=== PATIENT | male | born 1965 | race Caucasian/White ===

== ENCOUNTER 2019-10-08 09:14 | Inpatient (IN) ==
[2019-10-08] MEDS ORDERED: VERAPAMIL 2.5 MG/ML 2 ML VIAL ** 5 mg/2 ml ONE (09:18)
[2019-10-08] MEDS ORDERED: nitroGLYCERIN DRIP 100 MCG/ML 250 ML BTL ONE (09:18)
[2019-10-08] MEDS ORDERED: fentaNYL 100 mcg/2 ml 50 MCG/ML VIAL ONE ×3 (09:18→13:01)
[2019-10-08] MEDS ORDERED: Midazolam 5 mg/5 ml VIAL 1 mg/ml 5 ml VIAL (5 mg) ONE ×2 (09:18→09:19)
[2019-10-08] MEDS ORDERED: Heparin 1,000 UNIT/ML 10 ml (10,000 UNITS) CATHLAB/DIALYSIS ONE ×3 (09:18→10:18)
[2019-10-08] MEDS ORDERED: Heparin 2 UNITS/ML 1000 mls IV ONE (09:18)
[2019-10-08] MEDS ORDERED: Lidocaine 1% VIAL 10 MG/ML VIAL ONE (09:18)
[2019-10-08] MEDS ORDERED: Iohexol 350 (CONTRAST) 100 ML PAK IV ONE (09:18)
[2019-10-08] MEDS ORDERED: KCL 10 MEQ/50 ML ONE (09:18)
[2019-10-08] MEDS ORDERED: Iohexol 350 (CONTRAST) 200 ML MDV IV ONE ×2 (09:19→11:16)
[2019-10-08] MEDS ORDERED: NS 0.9% 1000 ml BAG 1,000 ML IV ONE (09:21)
[2019-10-08 09:27] LABS: ABS Basophils 0.1 10^3/ul (0-0.2); ABS Eosinophils 0.1 10^3/ul (0-0.6); ABS Lymphocytes 2.7 10^3/ul (1.0-4.8); ABS Monocytes 0.4 10^3/ul (0-0.8); Eosinophil % 0.8 %; Hematocrit 41 % (42-52); Hemoglobin 14.1 g/dL (14.0-18.0); Lymphocyte % 23.9 %; Mean Corpuscular HGB Conc 34 g/dL (31-36); Mean Corpuscular Hemoglobin 34 pg (27-31); Mean Corpuscular Volume 100 fL (80-94); Mean Platelet Volume 7.4 fL (7.4-10.4); Nucleated Red Blood Cells % 0.1; Platelet Count 277 10^3/uL (150-450); Red Blood Count 4.12 10^6 /uL (4.18-5.48); Red Cell Distribution Width 14 % (10-15); White Blood Count 11.4 10^3/uL (3.5-10.8)
[2019-10-08] MEDS ORDERED: Amiodarone IV 150 mg/3 ml VIAL ONE (09:29)
[2019-10-08 09:45] LABS: ALT 231 U/L (7-52); AST 230 U/L (13-39); Albumin 3.7 g/dL (3.2-5.2); Albumin/Globulin Ratio 1.3 (1-3); Alkaline Phosphatase 97 U/L (34-104); BUN/Creatinine Ratio 9.7 (8-20); Blood Urea Nitrogen 12 mg/dL (6-24); Calcium 8.2 mg/dL (8.6-10.3); Chloride 107 mmol/L (101-111); EGFR African American 73.8 (>60); Globulin 2.9 g/dL (2-4); Glucose 363 mg/dL (70-100); Potassium 3.1 mmol/L (3.5-5.0); Sodium 136 mmol/L (135-145); Total Protein 6.6 g/dL (6.4-8.9)
[2019-10-08] MEDS ORDERED: KCL 10 MEQ/50 ML IVPREMIX 10 MEQ/50 ML BAG ONE ×2 (09:49→10:51)
[2019-10-08 09:51] LABS: Anion Gap 15 mmol/L (2-11); CO2 Carbon Dioxide 14 mmol/L (22-32); Troponin I 0.11 ng/mL (<0.03)
[2019-10-08] MEDS ORDERED: Heparin 2 UNITS/ML 1000 mls 1,000 ML IV ONE (09:54)
[2019-10-08] MEDS ORDERED: Eptifibatide IV (Load dose) 2 MG/ML 10 ml VIAL ONE (10:28)
[2019-10-08] MEDS ORDERED: Sodium Bicarbonate 8.4% SYR 50 ml SYRINGE ONE ×2 (10:47→11:11)
[2019-10-08] MEDS ORDERED: fentaNYL 100 mcg/2 ml 50 MCG/ML VIAL IV SLOW PU PRN ×2 (10:57→13:22)
[2019-10-08] MEDS ORDERED: Propofol 10 mg/ml 100 ML BTL 100 ML ONE (10:58)
[2019-10-08] MEDS ORDERED: Propofol 10 mg/ml 100 ML BTL 100 ML IV SCH (11:00)
[2019-10-08] MEDS ORDERED: KCL 20 MEQ/100 ML IVPREMIX 20 MEQ/100 ML BAG IV SCH ×2 (11:00→13:00)
[2019-10-08] MEDS ORDERED: Norepinephrine IV 1 MG/ML 4 ML VIAL ONE (11:28)
[2019-10-08 11:55] LABS: BUN/Creatinine Ratio 14.1 (8-20); Blood Urea Nitrogen 13 mg/dL (6-24); CO2 Carbon Dioxide 21 mmol/L (22-32); Chloride 108 mmol/L (101-111); EGFR African American 104.1 (>60); EGFR Non-African American 86.1 (>60); Glucose 252 mg/dL (70-100); Sodium 135 mmol/L (135-145)
[2019-10-08 11:58] LABS: Anion Gap 6 mmol/L (2-11)
[2019-10-08] MEDS ORDERED: NS 0.9% 1000 ml BAG 1,000 ML IV SCH ×2 (12:30→13:20)
[2019-10-08] MEDS ORDERED: Cisatracurium 100 MG in NS 0.9% 250 ml 200 ML IV SCH (12:30)
[2019-10-08] MEDS ORDERED: Phenylephrine IV 10 MG/ML 1 ml VIAL ONE (12:30)
[2019-10-08] MEDS ORDERED: Propofol 10 MG/ML 20 ML BTL ONE (13:02)
[2019-10-08] MEDS ORDERED: Phenylephrine IV 50 MG in NS 0.9% 250 ml 245 ML IV SCH (13:22)
[2019-10-08] MEDS ORDERED: Amiodarone 360 MG IVPREMIX 360 MG/200 ML BAG IV ONE (13:30)
[2019-10-08] MEDS: Propofol 10 mg/ml 100 ML BTL 100 ML IV SCH ×2 (14:30→21:05)
[2019-10-08] MEDS ORDERED: fentaNYL INFUSION 50 MCG/ML 2,500 MCG/50 ML BAG IV SCH ×2 (16:00)
[2019-10-08 16:03] LABS: ABS Basophils 0.1 10^3/ul (0-0.2); ABS Lymphocytes 0.6 10^3/ul (1.0-4.8); ABS Monocytes 1.5 10^3/ul (0-0.8); ABS Neutrophils 14.4 10^3/ul (1.5-7.7); Hematocrit 37 % (42-52); Hemoglobin 12.7 g/dL (14.0-18.0); Lymphocyte % 3.6 %; Mean Corpuscular HGB Conc 34 g/dL (31-36); Mean Corpuscular Hemoglobin 34 pg (27-31); Mean Corpuscular Volume 99 fL (80-94); Mean Platelet Volume 7.8 fL (7.4-10.4); Nucleated Red Blood Cells % 0.1; Platelet Count 343 10^3/uL (150-450); Red Blood Count 3.74 10^6 /uL (4.18-5.48); Red Cell Distribution Width 13 % (10-15); White Blood Count 16.6 10^3/uL (3.5-10.8)
[2019-10-08 16:14] LABS: Magnesium 1.9 mg/dL (1.9-2.7); Phosphorus 6.6 mg/dL (2.5-5.0)
[2019-10-08 16:16] LABS: Activated Partial Thrombo Time 59.5 seconds (26.0-38.0); INR 1.21 (0.82-1.09)
[2019-10-08] MEDS: Norepinephrine 16MCG/ML IVPRE 4,000 MCG/250 ML BAG IV SCH ×2 (16:16→20:30)
[2019-10-08 16:28] LABS: ALT 308 U/L (7-52); Albumin 3.4 g/dL (3.2-5.2); Albumin/Globulin Ratio 1.5 (1-3); Alkaline Phosphatase 71 U/L (34-104); Anion Gap 7 mmol/L (2-11); BUN/Creatinine Ratio 14.8 (8-20); Blood Urea Nitrogen 17 mg/dL (6-24); CO2 Carbon Dioxide 17 mmol/L (22-32); Calcium 7.2 mg/dL (8.6-10.3); Chloride 113 mmol/L (101-111); EGFR African American 80.5 (>60); EGFR Non-African American 66.5 (>60); Globulin 2.3 g/dL (2-4); Glucose 181 mg/dL (70-100); Magnesium 1.7 mg/dL (1.9-2.7); Sodium 137 mmol/L (135-145); Total Protein 5.7 g/dL (6.4-8.9); Troponin I 7.21 ng/mL (<0.03)
[2019-10-08] MEDS ORDERED: Heparin DRIP 25,000 UNITS BAG 25,000 UNITS/500 ML BAG IV SCH (16:45)
[2019-10-08] MEDS ORDERED: Heparin 5000 UNITS/ML 1 mL VIAL IV SCH (17:00)
[2019-10-08] MEDS ORDERED: Magnesium Sulfate 2 gm BAG 2 GM/50 ML BAG IVPB ONE ×2 (17:03→17:21)
[2019-10-08] MEDS ORDERED: Artificial Tear OPHTH.OINT 3.5 GM BOTH EYES PRN (17:38)
[2019-10-08 18:02] VITALS: BP 150/54
[2019-10-08] MEDS ORDERED: NS 0.9% 500 ml BAG 500 ML IV ONE (18:52)
[2019-10-08 18:56] LABS: Urine Appearance Cloudy; Urine Bilirubin Negative (Negative); Urine Blood 2+ (Negative); Urine Color Yellow; Urine Glucose 3+(>=500 mg/dL) (Negative); Urine Ketones Negative (Negative); Urine Nitrite Negative (Negative); Urine Protein 2+(100 mg/dL) (Negative); Urine Specific Gravity 1.038 (1.010-1.030); Urine Urobilinogen Negative (Negative)
[2019-10-08 18:59] LABS: Urine Bacteria Absent (Absent); Urine Granular Casts Present (Absent); Urine Red Blood Cell 3+(>10/hpf) (Absent); Urine White Blood Cell Trace(0-5/hpf) (Absent)
[2019-10-08] MEDS ORDERED: Amiodarone 360 MG IVPREMIX 360 MG/200 ML BAG IV SCH (19:30)
[2019-10-08] MEDS ORDERED: Magnesium Sulfate 2 GM IV (Premix) IVPB ONE (20:00)
[2019-10-08] MEDS ORDERED: Chlorhexidine MOUTHWASH 0.12% 15 ML UDC TOPICAL SCH (20:00)
[2019-10-08 20:58] LABS: BUN/Creatinine Ratio 15.9 (8-20); Blood Urea Nitrogen 18 mg/dL (6-24); CO2 Carbon Dioxide 15 mmol/L (22-32); EGFR African American 82.1 (>60); EGFR Non-African American 67.9 (>60); Glucose 205 mg/dL (70-100); Sodium 136 mmol/L (135-145)
[2019-10-08 21:00] LABS: Anion Gap 7 mmol/L (2-11); Chloride 114 mmol/L (101-111)
[2019-10-08] MEDS ORDERED: Famotidine IV 10 MG/ML 2 ml VIAL (20 mg) IV SLOW PU SCH (21:00)
[2019-10-08] MEDS ORDERED: Norepinephrine IV 8 MG in NS 0.9% 500 ml BAG 492 ML IV SCH (22:00)
[2030-10-07] MEDS ORDERED: Rocuronium 50 mg VIAL 10 mg/ml 5 ml VIAL (50 mg) ONE (11:49)
== END 2019-10-08 21:30 | disposition short-term general hospital (02) | DRG 174 ==
LOC: ED 09:14 → CHICATH 09:43 → ICU 12:31
PROVIDERS: ATTEND Internal Medicine